=== PATIENT | female | born 2000 | race Two or more races ===

== ENCOUNTER 2019-11-10 08:30 | Emergency (ER) | payer OTHER ==
[~2019-11-10] VITALS: Ht 157.5 cm; Wt 136.1 kg
[2019-11-10 11:37] VITALS: BP 118/92
== END 2019-11-10 11:40 | disposition home or self-care (01) ==
LOC: ER 08:34
DX: J06.9 Acute upper respiratory infection, unspecified (principal); R11.10 Vomiting, unspecified
CPT/HCPCS: 71046